=== PATIENT | male | born 1970 | race Caucasian/White ===

== ENCOUNTER 2024-09-19 00:11 | Emergency (ER) | payer MEDICAID, SELFPAY ==
[2024-09-19 00:13] VITALS: BMI 35.5
[2024-09-19 00:16] VITALS: BP 128/90; PULSE 136; RESP 19; TEMP 37; O2SAT 96
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
== END 2024-09-19 00:45 ==
LOC: SERX 03:28
PROVIDERS: Emergency Provider Emergency Medicine; PCP Family Medicine
DX: Z02.89 Encounter for other administrative examinations (principal); S00.31XA Abrasion of nose, initial encounter; V89.2XXA Person injured in unspecified motor-vehicle accident, traffic, initial encounter
CPT/HCPCS: 99282